=== PATIENT | male | born 2000 | race African-American/Black ===

== ENCOUNTER 2019-07-27 14:52 | Inpatient (IN) ==
[2019-07-27 17:59] LABS: Basophils % 0.3 % (0.0-0.8); Eosinophils # 0.1 10*3/uL (0.0-0.87); Eosinophils % 1.7 % (0.00-10.9); Hematocrit 44.6 VOL% (42.0-52.0); Hemoglobin 14.4 GM/DL (14.0-18.0); Immature Granulocytes % 0.3 %; Immature Granulocytes Absolute 0.02 #; Lymphocytes # 1.5 10*3/uL (1.4-4.0); Mean Corpuscular HGB Conc 32.3 GM/DL (32-36); Mean Corpuscular Volume 88.7 FL (87-102); Mean Platelet Volume 12.6 FL (9.6-12.0); Monocytes % 8.5 % (1.7-12.7); Neutrophils % 68.2 % (38.7-73.9); Platelet Count 159 T/CUMM (130-400); Red Blood Count 5.03 MC/CUMM (3.8-5.5); Red Cell Distribution Width 13.2 % (9.3-17.3)
[2019-07-27 18:07] LABS: Calcium 8.8 MG/DL (8.5-10.1)
[2019-07-27 19:39] LABS: Apearance,Urine CLEAR (Clear); Bacteria,Urine Occasional /HPF (Few); Bilirubin,Urine Negative (Negative); Blood, Urine Negative (Negative); Glucose,Urine (UA) Negative (Negative); Ketones,Urine Negative (Negative); Mucus,Urine Occasional /LPF (Occasional); Nitrite,Urine Negative (Negative); Protein,Urine 100 MG/DL; RBC,Urine 1 /HPF (0-4); Squamous Epithelial Cell,Urine Occasional /HPF (0-10); Urine Color Straw (Yellow); Urine Urobilinogen < 2.0 EU/DL (0.2-1.0); WBC,Urine <1 /HPF (0-6)
[2019-07-27] MEDS ORDERED: hydrALAZINE 20 MG/1 ML VIAL IV STA ×2 (19:48→20:21)
[2019-07-27] MEDS ORDERED: MORPHINE 4 MG/1 ML VIAL IM STA (19:48)
[2019-07-27] MEDS ORDERED: PROMETHAZINE 25 MG/1 ML VIAL IM STA (19:48)
[2019-07-27] MEDS ORDERED: hydrALAZINE 20 MG/1 ML VIAL ONE (20:09)
[2019-07-27 20:31] LABS: Troponin I < 0.015 NG/ML (0.00-0.045)
[2019-07-27 21:46] LABS: Barbiturates Screen,Urine Negative (Negative); Benzodiazepines Screen,Urine Negative (Negative); Cannabinoid Screen,Urine Negative (Negative); Opiate Screen,Urine Negative (Negative); Phencyclidine Screen,Urine Negative (Negative)
[2019-07-27] MEDS ORDERED: hydrALAZINE 20 MG/1 ML VIAL IV PRN (21:49)
[2019-07-27] MEDS ORDERED: ONDANSETRON 4 MG/2 ML VIAL IV PRN (21:49)
[2019-07-27] MEDS ORDERED: MORPHINE 4 MG/1 ML VIAL IV PRN (21:49)
[2019-07-27] MEDS ORDERED: ACETAMINOPHEN 325 MG TABLET PO PRN (21:49)
[2019-07-27] MEDS ORDERED: NICOTINE 21 MG/24 HR PATCH TRANSDERM PRN (21:49)
[2019-07-27] MEDS ORDERED: guaiFENesin/DM ER 600-30 MG TABLET PO PRN (21:49)
[2019-07-27] MEDS ORDERED: diphenhydrAMINE CAP 25 MG CAPSULE PO PRN (21:49)
[2019-07-28 05:17] LABS: Alanine Aminotransferase 22 U/L (16-61); Alkaline Phosphatase 84 U/L (45-117); Aspartate Amino Transferase 15 U/L (0-37); Bilirubin,Total < 0.39 MG/DL (0.2-1.0); Blood Urea Nitrogen 27 MG/DL (7-18); Calcium 8.8 MG/DL (8.5-10.1); Glucose 91 MG/DL (74-106); Total Protein 6.9 G/DL (6.4-8.3)
[2019-07-28] MEDS: PANTOPRAZOLE 40 MG TABLET PO SCH (08:40)
[2019-07-28] MEDS: HEPARIN 5,000 UNIT/1 ML VIAL SUBCUT SCH ×2 (11:01→18:26)
[2019-07-29] MEDS: HEPARIN 5,000 UNIT/1 ML VIAL SUBCUT SCH ×2 (00:51→10:32)
[2019-07-29 02:03] LABS: Microalbum/Creat Ratio Random 1135.4 RATIO (0-30)
[2019-07-29 05:31] LABS: Basophils % 0.4 % (0.0-0.8); Eosinophils # 0.1 10*3/uL (0.0-0.87); Eosinophils % 2.4 % (0.00-10.9); Hematocrit 46.8 VOL% (42.0-52.0); Hemoglobin 15.3 GM/DL (14.0-18.0); Immature Granulocytes % 0.4 %; Immature Granulocytes Absolute 0.02 #; Lymphocytes # 1.5 10*3/uL (1.4-4.0); Lymphocytes % 27.6 % (21.2-54.2); Mean Corpuscular HGB Conc 32.7 GM/DL (32-36); Mean Corpuscular Volume 88.6 FL (87-102); Mean Platelet Volume 12.5 FL (9.6-12.0); Monocytes % 7.4 % (1.7-12.7); Neutrophils % 61.8 % (38.7-73.9); Platelet Count 159 T/CUMM (130-400); Red Blood Count 5.28 MC/CUMM (3.8-5.5); Red Cell Distribution Width 13.4 % (9.3-17.3); White Blood Count 5.4 T/CUMM (4-12)
[2019-07-29 05:54] LABS: Alanine Aminotransferase 19 U/L (16-61); Albumin 3.1 G/DL (3.4-5.0); Alkaline Phosphatase 71 U/L (45-117); Aspartate Amino Transferase 12 U/L (0-37); Bilirubin,Total < 0.39 MG/DL (0.2-1.0); Blood Urea Nitrogen 29 MG/DL (7-18); Calcium 8.4 MG/DL (8.5-10.1); Glucose 83 MG/DL (74-106); Osmolality,Calculated 285.3 MOS/KG (273-304); Total Protein 7.1 G/DL (6.4-8.3)
[2019-07-29] MEDS: PANTOPRAZOLE 40 MG TABLET PO SCH (10:32)
[2019-07-29 11:47] VITALS: BP 167/95
== END 2019-07-29 15:00 | disposition home or self-care (01) | DRG 684 ==
LOC: N.ED 14:52 → N.EDINP 21:39 → N.TELES 23:21 → N.5E 23:21
PROVIDERS: ADMIT Internal Medicine; ATTEND Internal Medicine